=== PATIENT | male | born 1985 | race Caucasian/White ===

== ENCOUNTER 2020-04-21 18:07 | Emergency (ER) | payer OTHER, SELFPAY ==
[2020-04-21 18:41] VITALS: BP 169/105; PULSE 95; RESP 16; TEMP 37.3; O2SAT 98; BMI 30.3
[2020-04-21 19:01] VITALS: BP 139/95; PULSE 102; O2SAT 97
--- NOTE | 2020-04-21 19:01 | PC.NURSE ---
pH 7.0
--- NOTE | 2020-04-21 19:02 | PC.NURSE ---
Called poison control,advised eye exam. Pt flushed eye prior to arrival to ED.
--- NOTE | 2020-04-21 20:39 | ED.EYEPROB ---
HPI - Eye Problem General Chief complaint: Eye Problems Stated complaint: chemicals in eye from work Time Seen by Provider: 04/21/20 20:39 Source: patient Mode of arrival: Ambulatory Limitations: no limitations History of Present Illness HPI Narrative: The patient works at a local [employer]. He will 1 day line, the fluid inside was under pressure. He was sprayed in the left eye. He did not swallow or inhale any the substance. His irrigated for 30 minutes on site prior to arrival here. He encountered a compound called [employer]. Following irrigation is pH is 7.0 here in the ER. He has no complaints this time. He has no visual changes or eye retention. His no throat or airway issues. He has no skin rash. Poison Control was contacted, there were no additional recommendations other than the irrigation and exam. Related Data Home Medications Medication Instructions Recorded Confirmed No Known Home Medications 04/21/20 04/21/20 Allergies Allergy/AdvReac Type Severity Reaction Status Date / Time No Known Drug Allergies Allergy Verified 04/21/20 18:47 Review of Systems Review of Systems ROS Unobtainable: All systems reviewed & are unremarkable except as noted in HPI and below Constitutional Constitutional: Denies headache(s) and Denies malaise Comments: No recent illness Eyes Eyes: Reports as per HPI, Denies change in vision, Denies eye discharge, Denies irritation and Denies loss of vision ENT Ears, Nose, Mouth, and Throat: Reports as per HPI and Denies headache(s) Cardiovascular Cardiovascular: Denies dyspnea Respiratory Respiratory: Denies cough and Denies dyspnea Neurologic Neurologic: Denies headache(s) and Denies loss of vision Patient History Medical History (Updated 04/21/20 @ 21:14 by Zhen Holloway MD) No chronic diseases present (Acute) Surgical History No significant past surgical history (Acute) tobacco type: smokeless tobacco alcohol intake frequency: a few times a week Substance Use Type: does not use Exam Initial Vital Signs Initial Vital Signs: Vital Signs Temperature 99.2 F 04/21/20 18:41 Pulse Rate 95 H 04/21/20 18:41 Respiratory Rate 16 04/21/20 18:41 Blood Pressure 169/105 H 04/21/20 18:41 Pulse Oximetry 98 04/21/20 18:41 Const General: cooperative and well developed Nutritional Appearance: well nourished [facility] Head: normocephalic and atraumatic Mouth: oral mucosae normal Throat: posterior oropharynx normal Eyes General: appearance normal, both eyes and all related structures Eyelids: eyelids normal Conjunctivae: conjunctivae normal and other (Left conjunctiva injection. Otherwise normal.) Sclera: sclerae normal Pupils: PERRL EOM: EOM intact bilaterally Resp Auscultation: clear to auscultation bilaterally Skin General: no rashes or lesions noted Course Vital Signs Vital signs: Vital Signs - 8 hr 04/21/20 18:41 04/21/20 19:01 Temperature 99.2 F Pulse Rate 95 H 102 H Respiratory Rate 16 Blood Pressure 169/105 H 139/95 H Pulse Oximetry 98 97 Discharge Plan Departure Patient Disposition: Home Clinical Impression: Chemical conjunctivitis of left eye Instructions: DI for Chemical Eye Burn Activity Restrictions/Additional Instructions: Your eye injury was well treated at the scene. Your eye exam is very reassuring. Return the ER if you have other concerns regarding your eye. You are released without limitations. Prescriptions: No Action No Known Home Medications RF: 0
--- NOTE | 2020-04-21 21:15 | PC.NURSE ---
Spoke with poison controlFrancisco. Poison control recommends fluorescein eye exam. wishes to d/c pt without this exam. Poison control informed and states the pt should be watchful of infection and to not use OTC eye drops and get further care if signs of infection arise.
== END 2020-04-21 21:22 | disposition home or self-care (01) ==
PROVIDERS: Emergency Provider Emergency Medicine
DX: H10.212 Acute toxic conjunctivitis, left eye (principal); Y99.0 Civilian activity done for income or pay
CPT/HCPCS: 99281

== ENCOUNTER 2022-08-11 10:07 | Emergency (ER) | payer OTHER, SELFPAY ==
[2022-08-11 10:25] VITALS: BP 152/98; PULSE 103; RESP 18; TEMP 36.8; O2SAT 98; BMI 31.6
--- NOTE | 2022-08-11 11:01 | DI.RAD.S_ITS ---
PROCEDURE: XR HAND LT MIN 3V INDICATIONS: pain/injury TECHNIQUE: 3 views of the hand(s) acquired. COMPARISON: None. FINDINGS: Bones: No fractures or dislocations. Carpal bones are normally aligned. No suspicious bony lesions. Soft tissues: Soft tissue swelling is seen, without a radiopaque foreign body. IMPRESSION: Soft tissue swelling, without a focal bony abnormality seen. Dictated by: Storm Haji M.D. on 08/11/2022 at 10:29 Approved by: Storm Haji M.D. on 08/11/2022 at 10:29
--- NOTE | 2022-08-11 11:02 | ED.WOUNDLAC ---
HPI - Wound/Laceration General Chief Complaint: Wound/Laceration Stated Complaint: work injury LT hand thumb Time Seen by Provider: 08/11/22 10:30 Source: patient Mode of arrival: Ambulatory History of Present Illness HPI narrative: Patient brought in by co-worker from job site. Has laceration to the dorsal aspect base of the left thumb. Patient is right-handed. Patient is up-to-date with tetanus shot. Denies any numbness or tingling to the thumb. However unable to extend his thumb fully. Has limited flexion due to pain. Bleeding is controlled. Based visualized. Patient was using a hand tool to cut items and it slipped. Was not wearing gloves. It was not a power tool. Has a 3 cm linear laceration longitudinal direction with the thumb starting from the base of the 1st MTP space. Dorsally. Related Data Previous Rx's Medication Instructions Recorded cephalexin 500 mg capsule 500 mg PO QID #20 caps 08/11/22 Allergies Allergy/AdvReac Type Severity Reaction Status Date / Time No Known Drug Allergies Allergy Verified 04/21/20 18:47 Review of Systems Review of Systems Narrative: GENERAL: negative chills, fatigue, malaise, fever, sweats. HEENT: negative sinus pain, ear pain, sore throat RESPIRATORY: negative dyspnea, cough CARDIOVASCULAR: negative chest pain, palpitations GASTROINTESTINAL: negative nausea, vomiting, abdominal pain : negative dysuria, frequency, hematuria MUSCULOSKELETAL: Positive muscle or bony pain SKIN: negative rash, skin lesions, positive skin injury NEUROLOGIC: negative weakness, numbness ROS Unobtainable: All systems reviewed & are unremarkable except as noted in HPI and below Patient History Medical History No chronic diseases present Surgical History No significant past surgical history tobacco type: smokeless tobacco alcohol intake frequency: a few times a week Substance Use Type: does not use Exam Narrative Exam Narrative: GENERAL: in no distress, not toxic not dyspneic HEAD: Normocephalic. EYES: Pupils equal round EXTREMITIES: No gross deformities. Examination left hand. There is a 3 cm linear longitudinal laceration dorsal surface of the left thumb starting at the base of the MTP extending to proximal phalanx. In bloodless field based visualized. No bony injury seen. No direct tendon injury seen but clinically patient can not extend at the IP joint or MCP joint. Limited flexion due to pain. No foreign body seen. Fat and muscle visualized. NEURO: AOx4. SKIN: Warm and dry PSYCH: Not anxious, is cooperative Initial Vital Signs Initial Vital Signs: Vital Signs Temperature 98.3 F 08/11/22 10:25 Pulse Rate 103 H 08/11/22 10:25 Respiratory Rate 18 08/11/22 10:25 Blood Pressure 152/98 H 08/11/22 10:25 Pulse Oximetry 98 08/11/22 10:25 Oxygen Delivery Method 08/11/22 10:25 Procedures Laceration Repair Laceration 1: Time of procedure: 11:09 Site: hand Side (If applicable): left Size (cm): 3 Description: linear Depth: simple, single layer Local Anesthetic: lidocaine 2% Amount of anesthesia used (mL): 5 Pre-repair: wound explored, irrigated extensively and cleansed with chlorhexadine Skin layer closed with: nylon Skin layer suture size: 4-0 Number of sutures: 7 Technique: simple, interrupted Course Orders Ordered: Discontinued Medications Cephalexin HCl (Cephalexin 250 Mg Capsule) 500 mg PO NOW ONE Stop: 08/11/22 10:31 Last Admin: 08/11/22 11:09 Dose: 500 mg Documented By: ELADIA Lidocaine HCl (Lidocaine 1% 20 Ml) 20 ml INJ INTRA-OP ONE Stop: 08/11/22 10:31 Last Admin: 08/11/22 11:26 Dose: Not Given Documented By: ELADIA Vital Signs Vital signs: Vital Signs - 8 hr 08/11/22 10:25 Temperature 98.3 F Pulse Rate 103 H Respiratory Rate 18 Blood Pressure 152/98 H Pulse Oximetry 98 Oxygen Delivery Method Room Air MDM - Wound/Laceration Imaging Data Extremity x-ray #1: Radiologist's Impression: [address] [address] XRay Report Signed Patient: Otis Smith MR#: [id number] : 1985 Acct:[id number] Age/Sex: 37 / M Date of Service: 08/11/22 Loc: ED Accession Number: [id number] ?? Procedure: XR hand LT min 3V Ordering Provider: Francisco Hugo MD PROCEDURE:? XR HAND LT MIN 3V ? INDICATIONS:? pain/injury ? TECHNIQUE:? 3 views of the hand(s) acquired.? ? COMPARISON:? None. ? FINDINGS:? ? Bones:? No fractures or dislocations.? Carpal bones are normally aligned.? No suspicious bony lesions.? ? Soft tissues:? Soft tissue swelling is seen, without a radiopaque foreign body. ? ? IMPRESSION:? Soft tissue swelling, without a focal bony abnormality seen. ? ? Dictated by: Storm Haji M.D. on 08/11/2022 at 10:29 ? ? Approved by: Storm Haji M.D. on 08/11/2022 at 10:29 ? MDM Narrative Medical decision making narrative: Patient brought in by co-worker from job site. Has laceration to the dorsal aspect base of the left thumb. Patient is right-handed. Patient is up-to-date with tetanus shot. Denies any numbness or tingling to the thumb. However unable to extend his thumb fully. Has limited flexion due to pain. Bleeding is controlled. Based visualized. Patient was using a hand tool to cut items and it slipped. Was not wearing gloves. It was not a power tool. Has a 3 cm linear laceration longitudinal direction with the thumb starting from the base of the 1st MTP space. Dorsally. After history and exam Keflex ordered. Patient updated with tetanus shot. X-ray of hand ordered. [facility] CC: Hand laceration Complicating co-morbidities: None Data collected from: Patient and co-worker Medical records reviewed: Not seen here previously for this complaint Differential considered: Includes but not limited to tendon laceration/fracture/laceration/retained foreign body Exam documented above, pertinent findings include: Extension deficit Imaging studies independently reviewed: X-ray left hand no acute process or bony abnormality or retained foreign body Consultations: 11:[address] Chisholm, agrees with treatment plan. Closed wound with suturing and he will see patient in the office for for re-evaluation. Patient to be placed in a aluminum finger splint Treatments: Suturing/Keflex/splint thumb spica Re-evaluations: Patient tolerated suturing very well. Bleeding controlled. Neurologically intact, patient does understand likely tendon laceration. L and I forms were completed. [employer] does have their own medical office and providers for work detail, thumb spica Velcro splint placed Discussion: Appropriate for discharge home. Exam otherwise reassuring. As well as imaging. I did contact Orthopedics for follow up. L and I forms completed. [employer] does have their own medical office for continued workmen's compensation. Diagnosis: Hand laceration Discharge Plan Departure Patient Disposition: Home Clinical Impression: Laceration Instructions: DI for Laceration Repair Activity Restrictions/Additional Instructions: Please continue antibiotics, Keflex was sent to your [facility] in [place]. Please see your company medical office for work details and continued wound care. Seven stitches should be removed by hand surgeon/orthopedics. Referral has been given for you but please contact your medical office 1st. Change dressing twice a day with warm soapy water and apply thin layer topical antibiotic. Please use provided splint for protection of your thumb. It is likely you have injured your tendon to your thumb. Prescriptions: New cephalexin 500 mg capsule 500 mg PO QID Qty: 20 0RF Referrals: Miscellaneous,MD Alverto [Primary Care Provider] - Arnulfo Chisholm MD [Physician] - Stand Alone Forms: Patient Portal/API
[2022-08-11] MEDS: cephALEXin 250 MG CAPSULE 500 MG PO (11:09)
[2022-08-11] MEDS: LIDOCAINE 2% INJ SDV 5ML 5 ML (11:26)
[2022-08-11 11:38] VITALS: PULSE 68; RESP 18; O2SAT 98
== END 2022-08-11 11:39 | disposition home or self-care (01) ==
PROVIDERS: Emergency Provider Emergency Medicine
DX: S61.012A Laceration without foreign body of left thumb without damage to nail, initial encounter (principal); W27.8XXA Contact with other nonpowered hand tool, initial encounter; Y99.0 Civilian activity done for income or pay
CPT/HCPCS: 12002; 73130; 99283; 99284